=== PATIENT | female | born 1950 | race Caucasian/White ===

== ENCOUNTER 2025-05-27 09:46 | Outpatient (CLI) | payer MEDICARE ==
[~2025-05-27] VITALS: Ht 161.9 cm; Wt 70.3 kg
[2025-05-27 10:38] VITALS: PULSE 66; RESP 16; O2SAT 95
[2025-05-27 10:49] VITALS: PULSE 60; RESP 16
[2025-05-27] MEDS: albuterol 2.5 MG/3 ML nebule NEB ONE (11:05)
--- NOTE | 2025-05-30 14:07 | PROCEDURE NOTE - Respiratory ---
Procedure Note-Respiratory Providers to CC Copies To 1: PAULETTE VELARDE Procedure Name: This is a spirometry study dated May 27, 2025. The spirometry study was performed both before and after inhaled bronchodilator. Spirometry measurements: Both the forced vital capacity and the FEV1 are normal. The FEV1 ratio is normal. The flow rates are normal. After inhaled bronchodilator was administered there is not much change in the flow volume curve. Conclusion: Normal spirometry study. We have no previous studies for comparison. I suspect the patient's nocturnal hypoxia problem is related more to a sleep apnea syndrome rather than underlying lung disease. TIERRA GASPAR MD May 30, 2025 14:06
== END 2025-05-27 23:59 | disposition home or self-care (01) ==
LOC: RT 09:46
PROVIDERS: ATTEND Physician Assistant
DX: G47.34 Idiopathic sleep related nonobstructive alveolar hypoventilation (principal); R06.09 Other forms of dyspnea
CPT/HCPCS: 94060; 94760